=== PATIENT | male | born 1970 | race American Indian/Alaskan Native ===

== ENCOUNTER 2020-07-07 10:10 | Emergency (ER) | payer SELFPAY ==
[2020-07-07 11:01] VITALS: BP 185/111
--- NOTE | 2020-07-07 11:32 | Emergency Department Report ---
ED Abdominal Pain HPI - General Chief Complaint: Abdominal Pain Stated Complaint: ABDOMINAL PAIN Time Seen by Provider: 07/07/20 11:28 Source: patient Mode of arrival: Ambulatory Limitations: No Limitations - History of Present Illness Initial Comments: 50-year-old -[place] male with past medical history of hypertension name Rodney Billingsley presents emergency department complaining of a 4 to 5-day history of not improving left lower quadrant pain that radiates over to the navel area associated with discharge pain he reports no nausea, no vomiting, no diarrhea, no fever, chills, sweats, no chest pain, no palpitations, no hemoptysis, no no no hematemesis, no hematochezia but the symptoms have progressed and linger enough to where he is worried of of possible issues and seeks further evaluation at the emergency department he reports no no prior issues to his his abdomen no previous history of any abdominal surgery. He reports no real recent trauma to the stomach as well for Consistency: constant Improves With: nothing Worsens With: other (Touching, getting up) Associated Symptoms: denies: nausea, vomiting, diarrhea, constipation, dysuria, hematemesis, melena, hematuria, anorexia - Related Data Previous Rx's Medication Instructions Recorded Last Taken Type Docusate Sodium [Colace CAP] 100 mg PO BID #60 capsule 02/27/15 Unknown Rx Amlodipine Besylate [Norvasc] 5 mg PO QDAY #30 tablet 01/10/20 Unknown Rx Ciprofloxacin HCl [Ciprofloxacin 500 mg PO Q12HR #28 tab 07/07/20 Unknown Rx TAB] Hyoscyamine Subl [Levsin Sl] 0.125 mg SL Q4HR PRN #16 tablet 07/07/20 Unknown Rx metroNIDAZOLE [Flagyl] 500 mg PO Q12HR #28 tab 07/07/20 Unknown Rx Allergies Allergy/AdvReac Type Severity Reaction Status Date / Time clarithromycin [From Biaxin] Allergy Angioedema Verified 02/25/15 12:09 ED Review of Systems ROS: Stated complaint: ABDOMINAL PAIN Other details as noted in HPI Comment: All other systems reviewed and negative ED Past Medical Hx - Past Medical History Previous Medical History?: Yes Hx Hypertension: Yes Hx Renal Disease: No - Surgical History Past Surgical History?: Yes Additional Surgical History: Left wrist fx repair, Right Index finger reattachment - Social History Smoking Status: Never Smoker - Medications Home Medications: Home Medications Medication Instructions Recorded Confirmed Last Taken Type Docusate Sodium [Colace CAP] 100 mg PO BID #60 capsule 02/27/15 Unknown Rx Amlodipine Besylate [Norvasc] 5 mg PO QDAY #30 tablet 01/10/20 Unknown Rx Ciprofloxacin HCl [Ciprofloxacin 500 mg PO Q12HR #28 tab 07/07/20 Unknown Rx TAB] Hyoscyamine Subl [Levsin Sl] 0.125 mg SL Q4HR PRN #16 tablet 07/07/20 Unknown Rx metroNIDAZOLE [Flagyl] 500 mg PO Q12HR #28 tab 07/07/20 Unknown Rx ED Physical Exam - General Limitations: No Limitations General appearance: alert, in no apparent distress - Head Head exam: Present: atraumatic, normocephalic - Eye Eye exam: Present: normal appearance - ENT ENT exam: Present: mucous membranes moist - Neck Neck exam: Present: normal inspection - Respiratory Respiratory exam: Present: normal lung sounds bilaterally. Absent: respiratory distress, wheezes, rales, rhonchi, chest wall tenderness, accessory muscle use - Cardiovascular Cardiovascular Exam: Present: regular rate, normal rhythm. Absent: systolic murmur, diastolic murmur, rubs, gallop - GI/Abdominal GI/Abdominal exam: Present: soft, tenderness (llq), normal bowel sounds, mass, other (Pain to left lower quadrant with palpation. No Rovsing, no Michael Duarte, no Yuri sign. No tenderness at McBurney's. Mild tenderness to the right upper quadrant with palpation as well radiates over to the epigastric region. No masses no distention no pulsatile mass no organomegaly). Absent: rebound, rigid - Rectal Rectal exam: Present: deferred - Extremities Exam Extremities exam: Present: normal inspection - Back Exam Back exam: Present: normal inspection - Neurological Exam Neurological exam: Present: alert, oriented X3 - Psychiatric Psychiatric exam: Present: normal affect, normal mood - Skin Skin exam: Present: warm, dry, intact, normal color. Absent: rash ED Course Vital Signs 07/07/20 10:59 Temperature 98.3 F Pulse Rate 71 Respiratory 18 Rate Blood Pressure 185/111 [Right] O2 Sat by Pulse 96 Oximetry ED Medical Decision Making - Lab Data Result diagrams: 07/07/20 11:53 07/07/20 11:53 Lab Results 12/18/20 12/18/20 Range/Units 11:53 11:53 WBC 7.3 (4.5-11.0) K/mm3 RBC 4.83 (3.65-5.03) M/mm3 Hgb 14.5 (11.8-15.2) gm/dl Hct 42.2 (35.5-45.6) % MCV 87 (84-94) fl MCH 30 (28-32) pg MCHC 35 H (32-34) % RDW 13.9 (13.2-15.2) % Plt Count 261 (140-440) K/mm3 Lymph % (Auto) 27.1 (13.4-35.0) % Carver % (Auto) 11.3 H (0.0-7.3) % Eos % (Auto) 1.7 (0.0-4.3) % Baso % (Auto) 1.7 (0.0-1.8) % Lymph # (Auto) 2.0 (1.2-5.4) K/mm3 Carver # (Auto) 0.8 (0.0-0.8) K/mm3 Eos # (Auto) 0.1 (0.0-0.4) K/mm3 Baso # (Auto) 0.1 (0.0-0.1) K/mm3 Seg Neutrophils % 58.2 (40.0-70.0) % Seg Neutrophils # 4.2 (1.8-7.7) K/mm3 Sodium 139 (137-145) mmol/L Potassium 3.6 (3.6-5.0) mmol/L Chloride 103.4 (98-107) mmol/L Carbon Dioxide 28 (22-30) mmol/L Anion Gap 11 mmol/L BUN 13 (9-20) mg/dL Creatinine 1.4 H (0.8-1.3) mg/dL Estimated GFR > 60 ml/min BUN/Creatinine Ratio 9 % Glucose 92 (75-100) mg/dL Calcium 9.3 (8.4-10.2) mg/dL Total Bilirubin 0.80 (0.1-1.2) mg/dL Direct Bilirubin < 0.2 (0-0.2) mg/dL Indirect Bilirubin 0.6 mg/dL AST 16 (5-40) units/L ALT 26 (7-56) units/L Alkaline Phosphatase 101 (35-129) units/L Total Protein 7.3 (6.3-8.2) g/dL Albumin 4.0 (3.9-5) g/dL Albumin/Globulin Ratio 1.2 % Lipase 53 (13-60) units/L - Medical Decision Making This patient presents with abdominal pain of unclear etiology. A CT scan was performed to evaluate for potential causes of the abdominal pain, however, neither the clinical exam nor the CT has identified an emergent etiology for the abdominal pain. CT scans did show diverticulitis with no perforation or other emergent medical condition present. specifically, given the benign exam, the laboratory studies, and unremarkable CT, I have a very low suspicion for appendicitis, ischemic bowel, bowel perforation, or any other life threatening disease. I have discussed with the patient the level of uncertainty with undifferentiated abdominal pain and clearly explained the need to follow-up as noted on the discharge instructions, or return to the Emergency Department immediately if the pain worsens, develops fever, persistent and uncontrollable vomiting, or for any new symptoms or concerns. Critical care attestation.: If time is entered above; I have spent that time in minutes in the direct care of this critically ill patient, excluding procedure time. ED Disposition Clinical Impression: Diverticulitis Disposition: DC-01 TO HOME OR SELFCARE Is pt being admited?: No Does the pt Need Aspirin: No Condition: Stable Instructions: Diverticulitis Additional Instructions: Diverticulitis: Disease and Diet Diverticulitis, while a relatively rare condition, is nevertheless the cause of hospitalization for approximately 200,000 people per year in the [place]. This unpleasant gastrointestinal disease is still somewhat of a mystery to doctors, but new research indicates a strong connection between the disease and ones regular diet. It is for this reason that new advice has emerged in terms of the kinds of foods that lead to a healthier colon and a lower chance of di verticulitis. Facts About the Colon Since diverticulitis is primarily a disease of the colon, its helpful to understand the structure and function of the colon. Also referred to as the large intestine, the colon is a U-shaped tube that forms the part of the digestive system between the small intestine and the rectum. After being subjected to digestive juices and peristaltic forces in the stomach, food enters the small intestine where special enzymes allow nutrients to be absorbed into the bloodstream. The remaining waste products move into the colon where water is absorbed and feces are formed before passing through the rectum. In a normal, healthy person, the wall of the colon is composed of several layers of tissue including muscle and the mucosa, an inner membrane that interacts with the waste materials that pass through. These tissues work together to form solid fecal matter, absorb water, and push the feces through to the rectum. Although the colon doesnt play a significant role in actual digestion, the gut maren that reside in the colon do participate in further breaking down food that hasnt been fully digested by the small intestine. What is Diverticulosis? In some people, the wall of the colon can ion exchange operator time. Though doctors and researchers dont know the precise cause, the muscular outer layer of the colon gets weaker as we get older. When that happens, the inner layer of the colon can begin to push through to weak spots in the outer layer. The result is small pockets or pouches called diverticula that protrude from the colon; this condition is known as either diverticulosis or diverticular disease. Diverticulosis is a relatively common condition in the [place] and other [place] countries, especially as people get older. While extremely rare for people who are 40 years old or younger, it is estimated that around half of people over the age of 60 develop diverticulosis; it is even more common for those who are older than 80. The good news is that for the majority of people, diverticulosis is harmless and rarely causes symptoms. What is Diverticulitis? Some newer research suggests that around 5% of those with diverticulosis will e ventually develop diverticulitis. Sometimes referred to more specifically as colonic diverticulitis, diverticulitis is a condition where the diverticula become infected and subsequently inflamed. Diverticulitis symptoms can include abdominal pain or tenderness, nausea, vomiting, fever, constipation, bloating, and, in rarer cases, diarrhea. Diverticulitis often comes on quickly and unexpectedly, and can cause a variety of complications: Intestinal obstruction: can be a total or partial blockage of the digestive tract Abscess: an abscess is an infected area that swells and fills with pus Perforation: a small hole or tear in the diverticulum Fistula: an abnormal passage that forms between the colon and the bladder or other organs Peritonitis: sometimes pus can leak through a perforation and cause an infection of the inner lining of the abdominal wall What Causes Diverticular Disease? The precise cause of diverticulosis and, by extension, diverticulitis, is still unclear to doctors. While there appears to be a relationship between getting older and developing the disease, age alone doesnt fully explain the onset. Curiously, diverticulosis is relatively uncommon in non-Western regions of the world where the amount of fiber in local diets are much more likely to be higher, particularly in the form of fruits, vegetables, and grains. It is because of this correlation between the typical Western diet and the development of diverticula in the colon that has led most doctors to the conclusion that a low fiber diet is at least part of the underlying cause. In general, low-fiber diets tend to bring about constipation since a lack of bulk- forming fiber doesnt assist in the movement of fecal matter through the colon. Once constipated, increased bowel pressure tends to promote straining during defecation; it is this combination of pressure and straining over time that is believed to cause diverticular disease. Diet for Preventing Diverticulitis Prior to the kind of infection that leads to diverticulitis, there isnt generally a treatment for diverticular disease. Though the diverticula wont go away by themselves, they typically dont cause symptoms or need to be treated. It is only when an infection begins that treatment is necessary, and that can include antibiotics or a low-fiber diet (to reduce the frequency of bowel movements); surgery may also be necessary for more severe cases. In addition to preventing the recurrence of infection, a modified diet may actually help also prevent the diverticula from forming in the first place. As alluded to earlier, some recent studies have indicated that moving away from a typical Western diet may be instrumental in combating diverticulitis. With that in mind, below are some different foods that should be added to your diet or avoided. Foods to Eat In general, a high-fiber diet is beneficial and associated with a lower risk of diverticulitis. The Department of Health and Human Services recommends a fiber intake of 25-30 grams per day for most age groups. Some foods that are known to be good sources of fiber include: Fruits such as bananas, apples, pears, prunes, and avocados Kidney beans, chickpeas, split peas, and lentils Vegetables such as broccoli, sweet potatoes, carrots, green beans, and squash Whole grains like quinoa, whole wheat, bulgur, and barley Brown and wild rice Whole wheat pasta and bread Oatmeal Yogurt and other fermented foods with probiotics like sauerkraut Fiber supplements such as psyllium can also be beneficial Foods to Avoid For a person that is currently in the midst of a flare up of diverticulitis, switching to a low-fiber diet or a clear liquid diet is crucial. Once the flare up has passed, a diet high in fiber-rich foods is important, but there are also some foods that should be avoided in order to have the best chance of preventing future inflammation: Red meat Refined grains like white bread or white rice High FODMAP substances (fermentable oligosaccharides, disaccharides, monosaccharides, and polyols) like sugars and sweeteners In the past, doctors routinely recommended avoiding a variety of foods for those with diverticular disease; nuts, seeds, and popcorn were often first on the list of foods to avoid. In recent years, however, most doctors now believe that it may not be necessary to avoid nuts and seeds in order to prevent a flare up. Gastroenterology Appointment For those with diverticular disease or diverticulitis, as well as with many other gastrointestinal diseases and disorders, what you eat can have a major effect on preventing problems. Research continues to show that dietary fiber may very well be the zayas to preventing diverticular disease. If you have experienced any of the symptoms of a diverticulitis flare up, or if you would like to talk with a pmo project manager about your digestive health in general, [facility] today to make an appointment Referrals: [facility] [Primary Care Provider] - 3-5 Days [facility] [Provider Group] - 3-5 Days
[2020-07-07 12:21] LABS: Basophils # (Auto) 0.1 K/mm3 (0.0-0.1); Basophils % (Auto) 1.7 % (0.0-1.8); Eosinophils # (Auto) 0.1 K/mm3 (0.0-0.4); Eosinophils % (Auto) 1.7 % (0.0-4.3); Hematocrit 42.2 % (35.5-45.6); Hemoglobin 14.5 gm/dl (11.8-15.2); Lymphocytes % (Auto) 27.1 % (13.4-35.0); Mean Corpuscular HGB Conc 35 % (32-34); Mean Corpuscular Volume 87 fl (84-94); Monocytes # (Auto) 0.8 K/mm3 (0.0-0.8); Monocytes % (Auto) 11.3 % (0.0-7.3); Platelet Count 261 K/mm3 (140-440); Red Blood Count 4.83 M/mm3 (3.65-5.03); Red Cell Distribution Width 13.9 % (13.2-15.2)
[2020-07-07 12:43] LABS: Alanine Aminotransferase 26 units/L (7-56); BUN/Creatinine Ratio 9; Blood Urea Nitrogen 13 mg/dL (9-20); Calcium 9.3 mg/dL (8.4-10.2); Hemolysis Index 12
[2020-07-07 12:48] LABS: Bilirubin,Direct < 0.2 mg/dL (0-0.2)
--- NOTE | 2020-07-07 13:03 | Cat Scan Report ---
CT ABDOMEN AND PELVIS WITHOUT CONTRAST INDICATION / CLINICAL INFORMATION: Abdominal Pain. TECHNIQUE: Axial CT images were obtained through the abdomen and pelvis without IV contrast. All CT scans at [facility] location are performed using CT dose reduction for ALARA by means of automated exposure control. COMPARISON: None available. FINDINGS: LOWER CHEST: No significant abnormality. LIVER: Generalized steatosis is noted with scattered subcentimeter hypodense lesions that are too sma ll to completely characterize. GALLBLADDER: No significant abnormality. BILE DUCTS: No significant abnormality. PANCREAS: No significant abnormality. SPLEEN: No significant abnormality. ADRENALS: No significant abnormality. RIGHT KIDNEY / URETER: No significant abnormality. LEFT KIDNEY / URETER: No significant abnormality. STOMACH / SMALL BOWEL: No significant abnormality. COLON: Mild inflammation is seen along the distal third of the descending colon and proximal third of the sigmoid colon with scattered diverticula. No other significant abnormality. APPENDIX: No significant abnormality. PERITONEUM: No free fluid. No free air. No fluid collection. LYMPH NODES: No significant adenopathy. AORTA / ARTERIES: No significant abnormality. IVC / VEINS: No significant abnormality. URINARY BLADDER: No significant abnormality. REPRODUCTIVE ORGANS: No significant abnormality. ADDITIONAL FINDINGS: There is a small umbilical hernia containing fat and unremarkable bowel loops wi thout associated inflammation. SKELETAL SYSTEM: No acute abnormality. There is grade 1 spondylolisthesis at L5-S1. IMPRESSION: 1. Uncomplicated mild descending/sigmoid colonic diverticulitis. 2. Additional findings as above. Signer Name: Juan Manuel Ervin MD Signed: 07/07/2020 12:58 PM Workstation Name: [id number]
== END 2020-07-07 15:57 | disposition home or self-care (01) ==
LOC: ED 10:10
DX: K57.92 Diverticulitis of intestine, part unspecified, without perforation or abscess without bleeding (principal); I10 Essential (primary) hypertension; Z98.890 Other specified postprocedural states; Z79.899 Other long term (current) drug therapy
CPT/HCPCS: 36415; 74176; 80048; 80076; 83690; 85025; 99283